=== PATIENT | female | born 1945 | race Caucasian/White ===

== ENCOUNTER 2024-08-20 14:23 | Outpatient (CLI) | payer MEDICARE | END 2024-08-20 14:24 | disposition home or self-care (01) | LOC: CSHMAMMO 14:23 | PROVIDERS: ATTEND Student in an Organized Health Care Education/Training Program | DX: Z13.820 Encounter for screening for osteoporosis (principal); Z78.0 Asymptomatic menopausal state; M85.89 Other specified disorders of bone density and structure, multiple sites | CPT/HCPCS: 77080 ==